=== PATIENT | female | born 1990 | race Caucasian/White ===

== ENCOUNTER 2020-08-01 15:13 | Emergency (ER) | payer OTHER ==
[~2020-08-01] VITALS: Ht 160 cm; Wt 54.3 kg
[2020-08-01] MEDS ORDERED: CORTCRE6 TOP (19:09)
[2020-08-01] MEDS ORDERED: PRED20TA PO (19:09)
[2020-08-01] MEDS ORDERED: predniSONE 20 MG TAB PO ONE (19:10)
[2020-08-01] MEDS ORDERED: HYDROCORTISONE 1% CREAM 30 GM TOP ONE (19:10)
[2020-08-01 19:15] VITALS: BP 131/88
== END 2020-08-01 19:43 | disposition home or self-care (01) ==
LOC: M ED 15:13
DX: L23.9 Allergic contact dermatitis, unspecified cause (principal)
CPT/HCPCS: 90471; 96372; 99283; J7512

== ENCOUNTER 2020-09-28 11:50 | Emergency (ER) | payer OTHER ==
[~2020-09-28] VITALS: Ht 160 cm; Wt 53.3 kg
[~2020-09-28 11:50] MED LIST: CORTCRE6 TOP; PRED20TA PO
[2020-09-28] MEDS ORDERED: BOOSTRIX/ADACEL VACCINE (DIPHTH/PERTUSS/ACELL/TETANUS) 0.5ML SYR IM ONE (15:45)
[2020-09-28] MEDS ORDERED: RABIES IMMUNE GLOBULIN 1500 INTERNATIONAL UNIT/5ML VIAL (90375) IM ONE (15:45)
[2020-09-28] MEDS ORDERED: RABIES VACCINE HUMAN 2.5 INTERNATIONAL UNITS/ML VIAL (90675) IM ONE (15:45)
[2020-09-28 16:29] VITALS: BP 118/74
== END 2020-09-28 17:15 | disposition home or self-care (01) ==
LOC: M ED 11:50
DX: Z23 Encounter for immunization (principal); Z20.3 Contact with and (suspected) exposure to rabies

== ENCOUNTER 2020-10-01 06:46 | Emergency (ER) | payer OTHER ==
[~2020-10-01] VITALS: Ht 165.1 cm; Wt 54.2 kg
[2020-10-01] MEDS ORDERED: RABIES VACCINE HUMAN 2.5 INTERNATIONAL UNITS/ML VIAL (90675) IM ONE (07:35)
[2020-10-01 08:38] VITALS: BP 110/68
== END 2020-10-01 08:41 | disposition home or self-care (01) ==
LOC: M ED 06:46
DX: Z23 Encounter for immunization (principal); Z20.3 Contact with and (suspected) exposure to rabies

== ENCOUNTER 2020-10-06 19:20 | Emergency (ER) | payer OTHER ==
[~2020-10-06] VITALS: Ht 160 cm; Wt 56.8 kg
[2020-10-06 19:21] VITALS: BP 123/71
[2020-10-06] MEDS ORDERED: RABIES VACCINE HUMAN 2.5 INTERNATIONAL UNITS/ML VIAL (90675) IM ONE (20:35)
== END 2020-10-06 21:17 | disposition home or self-care (01) ==
LOC: M ED 19:20
DX: Z23 Encounter for immunization (principal); W55.89XD Other contact with other mammals, subsequent encounter; Y92.9 Unspecified place or not applicable; Y93.9 Activity, unspecified; Y99.9 Unspecified external cause status

== ENCOUNTER 2020-10-15 19:42 | Emergency (ER) | payer OTHER ==
[~2020-10-15] VITALS: Ht 160 cm; Wt 53.9 kg
[2020-10-15 19:42] VITALS: BP 132/78
[2020-10-15] MEDS ORDERED: RABIES VACCINE HUMAN 2.5 INTERNATIONAL UNITS/ML VIAL (90675) IM ONE (22:40)
== END 2020-10-15 23:08 | disposition home or self-care (01) ==
LOC: M ED 19:42
DX: Z23 Encounter for immunization (principal); W55.89XA Other contact with other mammals, initial encounter; Y92.9 Unspecified place or not applicable; Y93.9 Activity, unspecified; Y99.9 Unspecified external cause status

== ENCOUNTER → 2020-11-29 | Outpatient (REF) ==
[2020-11-29 11:45] LABS: RSV AMPLIFICATION NEGATIVE (NEGATIVE)
== END ==
LOC: M EMP 10:46
PROVIDERS: ATTEND Family Medicine
DX: Z20.822 Contact with and (suspected) exposure to COVID-19 (principal)

== ENCOUNTER → 2021-01-19 | Outpatient (REF) | payer OTHER | LOC: M LAB REF 17:20 | PROVIDERS: ATTEND Physician Assistant | DX: D22.72 Melanocytic nevi of left lower limb, including hip (principal) | CPT/HCPCS: 11102; 88305; G0463 ==

== ENCOUNTER → 2021-01-20 | Outpatient (REF) ==
[2021-01-20 12:13] LABS: RSV AMPLIFICATION NEGATIVE (NEGATIVE)
== END ==
LOC: M EMP 10:55
PROVIDERS: ATTEND Family Medicine
DX: Z20.822 Contact with and (suspected) exposure to COVID-19 (principal)

== ENCOUNTER 2021-11-18 15:54 | Outpatient (CLI) | payer OTHER ==
[~2021-11-18] VITALS: Ht 160 cm; Wt 67.6 kg
[2021-11-18 16:12] VITALS: BP 136/84
[2021-11-18] MEDS ORDERED: PRENTAB9 PO (16:16)
[2021-11-18] MEDS ORDERED: ACYC1TAB PO (16:16)
[2021-11-18] MEDS ORDERED: HOME MED LIST COMPLETE! XX SCH (16:20)
== END 2021-11-18 18:25 | disposition home or self-care (01) ==
LOC: M LDO 15:54
PROVIDERS: ATTEND Advanced Practice Midwife
DX: O60.03 Preterm labor without delivery, third trimester (principal); O31.23 Continuing pregnancy after intrauterine death of one fetus or more, third trimester; Z3A.40 40 weeks gestation of pregnancy
CPT/HCPCS: 59025; G0463